=== PATIENT | female | born 1980 | race Caucasian/White ===

== ENCOUNTER 2016-12-18 15:49 | Inpatient (IN) | payer MEDICAID ==
[~2016-12-18] VITALS: Ht 157.5 cm; Wt 98.3 kg
[2016-12-18 16:39] VITALS: Ht 157.5 cm; Wt 98.3 kg
[2016-12-18] MEDS ORDERED: PRENAT PO (16:40)
[2016-12-18] MEDS ORDERED: LACTATED RINGER'S 1,000 ML IV SCH (17:00)
[2016-12-18] MEDS ORDERED: TERBUTALINE 1 MG/ML INJ SC ONE (17:00)
[2016-12-18 17:46] LABS: ADD UMIC NO; URINE BILIRUBIN (Dip) NEGATIVE (NEGATIVE); URINE BLOOD (Dip) NEGATIVE (NEGATIVE); URINE COLOR LT. YELLOW (YELLOW); URINE GLUCOSE (Dip) NEGATIVE (NEGATIVE); URINE KETONES (Dip) NEGATIVE (NEGATIVE); URINE LEUKOCYTE ESTERASE (Dip) NEGATIVE (NEGATIVE); URINE NITRITE (Dip) NEGATIVE (NEGATIVE); URINE TOTAL PROTEIN (Dip) NEGATIVE (NEGATIVE); URINE UROBILINOGEN (Dip) 0.2 E.U./dL (0.1-1.0)
[2016-12-18 17:48] LABS: BASOPHILS % 0.4 % (0.0-2.0); EOSINOPHILS # 0.2 10^3/ul (0.0-0.5); EOSINOPHILS % 2.1 % (0.0-7.0); HEMATOCRIT 38.7 % (37.0-47.0); LYMPHOCYTES # 2.4 10^3/ul (0.8-2.9); LYMPHOCYTES % 25.9 % (15.0-51.0); MEAN CORPUSCULAR HEMOGLOBIN 29.5 pg (29.0-33.0); MEAN CORPUSCULAR HGB CONC 33.6 g/dl (32.0-37.0); MEAN PLATELET VOLUME 8.4 fl (7.4-10.4); MONOCYTE # 0.5 10^3/ul (0.3-0.9); MONOCYTES % 5.3 % (0.0-11.0); NEUTROPHIL # 6.1 10^3/ul (1.6-7.5); NEUTROPHILS % 66.3 % (39.0-77.0); PLATELET COUNT 230 10^3/UL (140-440); RED CELL DISTRIBUTION WIDTH 14.8 % (11.5-14.5); UNCORRECTED WBC 9.3 10^3/ul (4.8-10.8); WHITE BLOOD COUNT 9.3 10^3/ul (4.8-10.8)
[2016-12-18 17:51] LABS: CONDITION 1; INR 0.95; LH ANALYZER COMMENTS 1; PROTIME 12.7 Sec (12.2-14.2)
[2016-12-18 17:52] LABS: PARTIAL THROMBOPLASTIN TIME 27.6 Sec (25.0-35.0)
[2016-12-18 17:53] LABS: ALBUMIN 3.6 g/dl (3.3-4.9)
[2016-12-18 17:54] LABS: POTASSIUM 4.7 mmol/L (3.5-5.1)
[2016-12-18 17:56] LABS: ALBUMIN/GLOBULIN RATIO 1.05; BILIRUBIN,INDIRECT 0.3 mg/dl (0-1.1); BILIRUBIN,TOTAL 0.3 mg/dl (0.2-1.3); CREATININE 0.4 mg/dl (0.44-1.00)
[2016-12-18 17:57] LABS: CALCIUM 10.1 mg/dl (8.4-10.2); URIC ACID 4.5 mg/dl (3.1-7.9)
--- NOTE | 2016-12-18 17:57 | RADRPT ---
PROCEDURE: OB ultrasound for biophysical profile CLINICAL INDICATION: labor. Biophysical profile. . TECHNIQUE: Multiple sonographic images of the pelvis were obtained. Transabdominal imaging was pe rformed. Transvaginal images were obtained to assess cervical length. The images were reviewed on a PACS workstation. COMPARISON: None FINDINGS: breathing movement = 2/2 tone = 2/2 motion = 2/2 MAKAYLA = 2/2 MAKAYLA = 19.7 cm Single intrauterine gestation is identified in breech position. Placenta is anterior without evidenc e for abruption or previa. heart rate is 141 bpm. The cervix is closed and measures 4.8 cm in length. IMPRESSION: 1. Single live intrauterine gestation. 2. Biophysical profile = 8/8. 3. MAKAYLA = 19.7 cm. 4. Breech presentation. RPTAT: PP .Lon Eddy MD, Date Time Electronically viewed and signed by .Lon Eddy MD, on 12/18/2016 17:57 .R/
[2016-12-18] MEDS ORDERED: MISOPROSTOL 200 MCG TAB PR PRN (18:00)
[2016-12-18] MEDS ORDERED: MAGNESIUM SULFATE 4 GM/100 ML 100 ML IV ONE (18:00)
[2016-12-18] MEDS ORDERED: CEFAZOLIN 2 GM/50 ML (PMX) 50 ML IV SCH (18:00)
[2016-12-18] MEDS ORDERED: METHYLERGONOVINE 0.2 MG INJ IM PRN (18:00)
[2016-12-18] MEDS ORDERED: OXYTOCIN 30 UNITS/LR 500 ML IV PRN (18:00)
[2016-12-18] MEDS ORDERED: CARBOPROST 250 MCG INJ IM PRN (18:00)
[2016-12-18] MEDS: MAGNESIUM SULFATE 20 GM/500 ML 500 ML IV SCH (19:00)
[2016-12-18] MEDS ORDERED: BETAMET NA PHOS/AC(6 MG/ML) 5ML INJ IM SCH ×2 (19:00→20:26)
[2016-12-18] MEDS: LACTATED RINGER'S 1,000 ML IV SCH (19:46)
[2016-12-18 20:39] LABS: BARBITURATES Negative (NEGATIVE); BENZODIAZEPINES Negative (NEGATIVE); CANNABINOIDS Negative (NEGATIVE); COCAINE Negative (NEGATIVE); OPIATES Negative (NEGATIVE)
[2016-12-19] MEDS: LACTATED RINGER'S 1,000 ML IV SCH ×2 (04:27→13:36)
[2016-12-19] MEDS: MAGNESIUM SULFATE 20 GM/500 ML 500 ML IV SCH ×2 (04:29→13:36)
[2016-12-19] MEDS ORDERED: LABETALOL HCL 20MG INJ IV PRN (06:00)
[2016-12-19] MEDS ORDERED: CITRIC ACID/NA CITRATE 30 ML CUP PO ONE (11:00)
[2016-12-19] MEDS ORDERED: KETOROLAC 30 MG INJ ONE (15:27)
[2016-12-19] MEDS ORDERED: morphine SULFATE/PF (10 MG/10 ML) INJ ONE (15:27)
[2016-12-19] MEDS ORDERED: ONDANSETRON 4 MG INJ ONE (15:27)
[2016-12-19] MEDS ORDERED: METOCLOPRAMIDE 10 MG INJ ONE (15:27)
[2016-12-19] MEDS ORDERED: ONDANSETRON 4 MG INJ IV PRN ×2 (16:00)
[2016-12-19] MEDS ORDERED: MEPERIDINE 25 MG INJ IV PRN (16:00)
[2016-12-19] MEDS ORDERED: NALOXONE (0.4 MG/ML) INJ IV PRN (16:00)
[2016-12-19] MEDS ORDERED: DIPHENHYDRAMINE 50 MG INJ IV PRN ×2 (16:00)
[2016-12-19] MEDS ORDERED: KETOROLAC 30 MG INJ IV PRN (16:00)
[2016-12-19] MEDS ORDERED: HYDROmorphONE (0.2 MG/ML) 10ML SYG IV PRN ×3 (16:00)
[2016-12-19] MEDS ORDERED: METOCLOPRAMIDE 10 MG INJ IV PRN (16:00)
[2016-12-19] MEDS ORDERED: HYDROmorphONE 1 MG/ML SYG IV PRN ×3 (16:00)
[2016-12-19] MEDS ORDERED: FENTAnyl 50 MCG/ML VIAL ONE (16:09)
[2016-12-19] MEDS ORDERED: OXYTOCIN 30 UNITS/LR 500 ML IV SCH (19:00)
--- NOTE | 2016-12-19 19:35 | DELSUM ---
Delivery Summary A-C Datetime Report Generated by CPN: 12/19/2016 19:34 DELIVERY PERSONNEL Senior Software Qa Analyst: Nicholas, [facility] MATERNAL INFORMATION Delivery Anesthesia: Epidural Medications in Delivery: SEE ANESTHESIA RECORDS Estimated Blood Loss (ml): 600 Placenta Cultured: No Maternal Complications: Other Other Maternal Complications: PIH ON MAGNESIUM SULFATE LABOR SUMMARY EDC: 01/28/2017 00:00 No. Babies in Womb: 1 Attempted: No Labor Anesthesia: Intrathecal LABOR INFORMATION Reason for Induction: Not Applicable Oxytocin: N/A Group B Beta Strep: Not Done Antibiotics # of Doses: ANCEF 2 GM Antibiotics Time of Last Dose: 1539 Steroids Given: Full Course Reason Steroids Not Administered: Not Applicable MEMBRANES Membranes Rupture Method: Artificial Rupture of Membranes: 12/19/2016 16:06 Length of Rupture (hr): 0.02 Amniotic Fluid Color: Clear Amniotic Fluid Amount: Large Amniotic Fluid Odor: Normal STAGES OF LABOR Stage 3 hr: 0 Stage 3 min: 1 CSECTION DELIVERY Primary Indication: Repeat Elective Other Primary Indication: PIH CSection Urgency: Non Elective CSection Incidence: Repeat Labor: No Labor Elective: Nonelective CSection Incision: Lower Uterine Transverse BABY A INFORMATION Delivery Date/Time: 12/19/2016 16:07 Method of Delivery: Born in Route : No : N/A Forceps: N/A Vacuum Extraction: N/A Shoulder Dystocia : N/A SHOULDER DYSTOCIA BABY A Delivery Date/Time: 12/19/2016 16:07 PRESENTATION/POSITION BABY A Presentation: Cephalic Cephalic Presentation: Vertex Breech Presentation: N/A PLACENTA INFORMATION BABY A Placenta Delivery Time : 12/19/2016 16:08 Placenta Method of Delivery: Manual Removal Placenta Status: Delivered SCORES BABY A Heart Rate 1 min: >100 bpm Resp Effort 1 min: Good Cry Reflex Irritability 1 min: Cough/Sneeze/Pulls Away Muscle Tone 1 min: Active Motion Color 1 min: Body [place], Extremit Blue SCORE 1 MIN: 9 Heart Rate 5 min: >100 bpm Resp Effort 5 min: Good Cry Reflex Irritability 5 min: Cough/Sneeze/Pulls Away Muscle Tone 5 min: Active Motion Color 5 min: Body [place], Extremit Blue SCORE 5 MIN: 9 INFORMATION BABY A Gestational Age at Delivery: 34.2 Gestational Status: Late - 34- 36.6 Weeks Infant Outcome : Liveborn Condition : Stable Sex: Male IDENTIFICATION/MEDS BABY A ID Band Number: [id number] ID Band Location: Right Leg; Left Arm Sensor Applied: No Vitamin K Given : Not Given Erythromycin Given: Not Given WEIGHT/LENGTH BABY A Infant Birthweight (gm): 2760 Infant Weight (lb): 6 Infant Weight (oz): 1 Length (in): 19.50 Infant Length (cm): 49.53 CORD INFORMATION BABY A No. Cord Vessels: 3 Nuchal Cord : N/A Cord Blood Taken: Yes Infant Suction: Mouth; Nose ASSESSMENT BABY A Infant Complications: None Infant Complications- Other: BABY ADMITTED IN NICU FOR PREMATURITY Physical Findings at Delivery: Within Normal Limits Infant Respirations: Appears Normal Performance Test Consultant/ALS Called : Yes Infant Care By: NICU TEAM Transferred To: NICU
--- NOTE | 2016-12-19 19:59 | HP ---
DATE OF ADMISSION: 12/18/2016 HISTORY OF PRESENT ILLNESS: This is a 36-year-old female, 2, para 1, with an EDC of 01/28/2017, admitted at 34 to 35 weeks' gestation to [facility] due to the elevated blood pressure which were running at on admission 143/97, the highest 162/94. The patient was kept under close observation and perinatology consult requested and also she was placed on magnesium sulfate. The recommendation of perinatologist was delivery of the baby and since she has had a previous section, she is being prepared to undergo a repeat section by diagnosis of PIH superimposed on essential hypertension. She has been under the care of the [facility] and during the course of the , her blood pressure was elevated as of the first visit to the office at 9 weeks' gestation which was 132/101 and the rest of her blood pressure during the course of the , they were in the 140s/80s and mostly the diastolic was higher and her final blood pressure that was done on in the office was 130/94. GYNECOLOGIC HISTORY: Menarche at age 13. Regular periods. History of 1 previous with section. PAST MEDICAL HISTORY: No other hospitalization for any other surgical or medical condition has been recorded in her record. ALLERGIES: SHE IS NOT ALLERGIC TO ANY KNOWN MEDICATION. SOCIAL HISTORY: Denies smoking and drinking. PHYSICAL EXAMINATION: VITAL SIGNS: 5 feet, 2 inches, 216 pounds. Temperature 98.3, pulse of 63, respiration 18, and blood pressure 162/94. HEAD, EARS, NOSE AND THROAT: Negative. NECK: Supple. No thyromegaly. LUNGS: Clear to P and A. HEART: Normal sinus rhythm, no murmur. BREASTS: Status compatible with state of the . No abnormal palpable mass. No nipple retraction or discharge. No axillary adenopathy, no supraclavicular adenopathy. ABDOMEN: Measures approximately 37 to 38 cm from the upper border of the pubic arch to the highest level of the uterine fundus with the heart category 1 and mild contractions less than 3 or 4 in 10 minutes. EXTREMITIES: 2+ ankle edema. Reflexes were within normal. IMPRESSION: Intrauterine at 34 to 35 weeks' gestation. complicated with essential hypertension with possible superimposed - induced hypertension. Perinatology consultation recommended delivery. The patient is aware of the complication of the surgery, including being at 34 to 35 weeks' gestation, due to prematurity there is possibility of baby may need to be transferred to NICU ,also the complication of the surgery, including but not limited to bowel or bladder injury, infection, hemorrhage, and hematoma, and she agrees to go ahead with this procedure. Dictated By: ABIODUN CAR/LATRELL Conf#: [id number] DID#: [id number]
--- NOTE | 2016-12-19 20:23 | OPR ---
DATE OF OPERATION: 12/19/2016 PREOPERATIVE DIAGNOSES: 1. Intrauterine at 35 weeks' gestation. 2. History of previous section. 3. Severe -induced hypertension, recommended by perinatologist delivery. POSTOPERATIVE DIAGNOSES: 1. Intrauterine at 35 weeks' gestation. 2. History of previous section. 3. Severe -induced hypertension, recommended by perinatologist delivery. OPERATION PERFORMED: Repeat transverse low cervical section. SURGEON: Abiodun Mace MD WET MILLING WHEEL OPERATOR: Cady Paniagua MD ANESTHESIA: Spinal. ANESTHESIOLOGIST: Jena Wilks MD FINDINGS: Live baby boy, Apgars 9 and 9. Baby weighed 2760 grams, 6 pounds 1 ounce. DETAILS OF THE PROCEDURE: Under satisfactory spinal anesthesia, the patient prepped and draped and placed in supine position tilted to the left. Pfannenstiel incision was made. Old scar was removed . Incision carried through the subcutaneous tissue. Bleeders brought under control with electrocau rhonda. Fascia incised to the length of incision. Rectus muscle divided in midline. Peritoneum expo sed, entered through transverse incision. Exploration of abdomen, gravid uterus, normal-appearing t ubes and ovaries. Bladder flap was developed. Transverse incision was made in the lower segment of the uterus. Amniotic sac ruptured. Clear amniotic fluid noted. Live baby boy was delivered from [facility]. Nasal, oropharyngeal suction was performed and baby handed to the team for immediate attention. The patient received 20 units of Pitocin. Placenta delivered manually intact. Uterine cavity cleaned with wet sponge and drainage established. Uterus closed in 2 layers using Monocryl # 1 in continuous fashion. Peritoneal cavity irrigated with warm saline. Sponge, needle, instrument reported to be correct. Abdominal peritoneum closed with 2-0 chromic catgut continuously. Rectus m uscle approximated with 2 interrupted 2-0 chromic catgut. Fascia closed with #1 PDS in a continuous fashion. Subcutaneous tissue irrigated with warm saline and approximated with 2-0 chromic catgut. Skin closed with prisca. Estimated blood loss 600 to 700 mL. Urine bag contained 200 mL of clear urine. The patient tolerated procedure well and transferred to recovery room in good condition. Dictated By: ABIODUN MACE MD HF/NTS Conf#: [id number] DID#: [id number]
[2016-12-19] MEDS ORDERED: BETAMET NA PHOS/AC(6 MG/ML) 5ML INJ IM SCH ×3 (20:30)
[2016-12-19 20:50] VITALS: BP 144/75; PULSE 73; RESP 18
[2016-12-19] MEDS ORDERED: LANOLIN 7 GM TUBE TOP PRN (21:00)
[2016-12-19] MEDS ORDERED: ACETAMINOPHEN/CODEINE #3 TAB PO PRN ×2 (21:00)
[2016-12-19] MEDS ORDERED: OXYTOCIN 30 UNITS/LR 500 ML IV PRN (21:00)
[2016-12-19] MEDS ORDERED: CARBOPROST 250 MCG INJ IM PRN (21:00)
[2016-12-19] MEDS ORDERED: CEFAZOLIN 1 GM/50 ML (PMX) 50 ML IVPB SCH (21:00)
[2016-12-19] MEDS ORDERED: MISOPROSTOL 200 MCG TAB PR PRN (21:00)
[2016-12-19] MEDS ORDERED: METHYLERGONOVINE 0.2 MG INJ IM PRN (21:00)
[2016-12-19] MEDS ORDERED: OXYCODONE/ACETAMINOPHEN (5/325) TAB PO PRN ×2 (21:00)
[2016-12-19] MEDS: SENNA/DOCUSATE NA (8.6MG/50MG) TAB PO SCH (21:00)
[2016-12-19] MEDS: OXYTOCIN 30 UNITS/LR 500 ML IV SCH (21:28)
[2016-12-19 22:00] VITALS: BP 129/73; PULSE 64; RESP 18
[2016-12-19 23:00] VITALS: BP 130/69; PULSE 62; RESP 18
[2016-12-20] VITALS (15 sets, daily range): BP systolic 107–141; BP diastolic 60–76; PULSE 57–78; RESP 16–19
[2016-12-20 00:05] LABS: SCRET 0.4 mg/dl (0.44-1.00)
[2016-12-20] MEDS: MAGNESIUM SULFATE 20 GM/500 ML 500 ML IV SCH (03:05)
[2016-12-20] MEDS: OXYTOCIN 30 UNITS/LR 500 ML IV SCH ×2 (03:06→05:00)
[2016-12-20] MEDS ORDERED: CARBOPROST 250 MCG INJ ONE (07:00)
[2016-12-20 08:14] LABS: BASOPHILS % 0.1 % (0.0-2.0); HEMATOCRIT 33.1 % (37.0-47.0); HEMOGLOBIN 11.1 g/dl (12.0-16.0); LYMPHOCYTES % 8.3 % (15.0-51.0); MEAN CORPUSCULAR HGB CONC 33.7 g/dl (32.0-37.0); MEAN CORPUSCULAR VOLUME 89.1 fl (82.0-101.0); MEAN PLATELET VOLUME 8.6 fl (7.4-10.4); MONOCYTE # 0.6 10^3/ul (0.3-0.9); MONOCYTES % 4.6 % (0.0-11.0); NEUTROPHIL # 10.7 10^3/ul (1.6-7.5); PLATELET COUNT 225 10^3/UL (140-440); RED BLOOD COUNT 3.71 10^6/ul (4.20-5.40); RED CELL DISTRIBUTION WIDTH 14.9 % (11.5-14.5); UNCORRECTED WBC 12.3 10^3/ul (4.8-10.8); WHITE BLOOD COUNT 12.3 10^3/ul (4.8-10.8)
[2016-12-20 08:38] LABS: CONDITION 1; LH ANALYZER COMMENTS 1
[2016-12-20] MEDS: SENNA/DOCUSATE NA (8.6MG/50MG) TAB PO SCH ×2 (09:44→22:49)
[2016-12-20] MEDS: LACTATED RINGER'S 1,000 ML IV SCH ×2 (09:44→21:26)
[2016-12-20] MEDS: IBUPROFEN 600 MG TAB PO SCH (18:00)
--- NOTE | 2016-12-20 18:12 | PN ---
Date/Time of Note Date/Time of Note DATE: 12/20/16 TIME: 18:10 OB Subjective Subjective Subjective Postop day 1 Afebrile blood pressure running within normal no headache no epigastric or blurry vision abdomen soft incision dry bowel sounds present ambulation recommended ABIODUN MACE MD Dec 20, 2016 18:12
[2016-12-21] MEDS: IBUPROFEN 600 MG TAB PO SCH ×4 (00:17→18:07)
[2016-12-21 04:00] VITALS: BP 137/75; PULSE 75; RESP 17
[2016-12-21 08:30] VITALS: BP 138/83; RESP 17
[2016-12-21] MEDS: SENNA/DOCUSATE NA (8.6MG/50MG) TAB PO SCH ×2 (08:55→21:00)
[2016-12-21] MEDS ORDERED: INFLUENZA VIRUS VACCINE 0.5 ML (DISPENSING) IM* ONE (09:00)
[2016-12-21] MEDS: LACTATED RINGER'S 1,000 ML IV SCH (10:46)
--- NOTE | 2016-12-21 14:06 | PN ---
Date/Time of Note Date/Time of Note DATE: 12/21/16 TIME: 14:04 OB Subjective Subjective Subjective Postop day 2 Abdomen soft uterus firm incision dry bowel sounds present had normal BM extremity normal ABIODUN MACE MD Dec 21, 2016 14:06
[2016-12-21 16:30] VITALS: BP 140/81; PULSE 76; RESP 17
[2016-12-21 19:30] VITALS: BP 139/76; PULSE 84; RESP 18
[2016-12-22] MEDS: IBUPROFEN 600 MG TAB PO SCH ×3 (01:11→12:43)
[2016-12-22 04:30] VITALS: BP 156/84; PULSE 86; RESP 18
[2016-12-22 08:15] VITALS: BP 157/86; PULSE 80; RESP 17
[2016-12-22] MEDS: SENNA/DOCUSATE NA (8.6MG/50MG) TAB PO SCH (08:43)
[2016-12-22] MEDS ORDERED: DIPHTH/TET/ACEL PERTUSS (ADULT) 0.5 ML VIAL IM* ONE (09:00)
[2016-12-22 10:00] VITALS: BP 146/83; PULSE 83; RESP 16
[2016-12-22 12:00] VITALS: BP 138/85; PULSE 89; RESP 18
--- NOTE | 2016-12-22 13:42 | PD.PPDC ---
AUTO [employer]S PROFESSIONAL Discharge Instruction Condition Patient Condition: Good Diet Diet: Resume Regular Diet Activity/Restrictions Activity: Normal Activity May Shower Restrictions: No Exercising No Lifting No Driving No Sexual Activity Nothing in the Vagina No [place] No Tampons, douche Wound/Drain Care Instructions Wound/Drain Care Instructions: Remove Steri Strips in 1 week Follow-up Follow-up with Physician: 4 Return to clinic for WELL LOGGER Instructions: Fever greater than 101 Worsening abdominal pain Excessive Vaginal Bleeding More than 2 pads per hour Unable to tolerate diet OB Instructions: Breast Tenderness Blurried Vision Headache Surgical Instructions: Incisional Drainage Incisional Redness ABIODUN MACE MD Dec 22, 2016 13:42
--- NOTE | 2016-12-22 13:57 | DS ---
Date/Time of Note Date/Time of Note DATE: 12/22/16 TIME: 13:52 Obstetrical Discharge Record Final Diagnosis Final Diagnosis: Term delivered Section Section: Repeat Complications Preg induced Hypertension Augmentation: No Induction: No Tocolytics: Magnesium Sulfate Condition on Discharge Physical Assessment Last Vitals: Third post day Vital sign is stable blood pressure in the last 24 hours mostly running in low 140s over 80s she has no complain of headache or gastric pain blurry vision, her abdomen is soft, incision dry good bowel sounds had normal bowel movement is being discharged home with a prescription of labetalol 100 mg every 12 hours with the parameter to hold the doses if her blood pressure is less than 140/80, also recommended to make an appointment in 4 days to the office for postoperative check and removal of her prisca Current Medications Medications (Trade) Dose Ordered Sig/Nader Route PRN Reason Start Time Stop Time Status Last Admin Dose Admin Terbutaline Sulfate 0.25 mg 0.25 mg ONCE ONCE SC 12/18/16 17:00 12/18/16 17:01 DC 12/18/16 17:18 Lactated Ringer's 1,000 ml @ 125 mls/hr Q8H IV 12/18/16 17:00 12/18/16 17:41 DC 12/18/16 17:18 Lactated Ringer's 1,000 ml @ 75 mls/hr [id number] IV 12/18/16 17:34 12/21/16 12:28 DC 12/20/16 09:44 Cefazolin Sodium/ Dextrose 50 ml @ 100 mls/hr ONCE IV 12/18/16 18:00 12/19/16 21:07 DC Oxytocin/Lactated Ringer's 500 ml @ 0 mls/hr ONCE PRN IV For Hemorrhage Management 12/18/16 18:00 12/19/16 21:07 DC Methylergonovine Maleate (Methergine) 0.2 mg ONCE PRN IM VAGINAL BLEEDING 12/18/16 18:00 12/19/16 21:07 DC Carboprost Tromethamine (Hemabate) 250 mcg ONCE PRN IM VAGINAL BLEEDING 12/18/16 18:00 12/19/16 21:07 DC Misoprostol 1000 mcg 1,000 mcg ONCE PRN CA VAGINAL BLEEDING 12/18/16 18:00 12/19/16 21:07 DC Magnesium Sulfate 100 ml @ 200 mls/hr ONCE ONCE IV 12/18/16 18:00 12/18/16 18:29 DC 12/18/16 18:37 Magnesium Sulfate (Magnesium Sulfate 20 Gm/500 ml) 500 ml @ 50 mls/hr Q10H IV 12/18/16 17:37 12/20/16 13:39 DC 12/20/16 03:05 Betamethasone Acet/Betameth SodPhos (Celestone Soluspan) 12 mg Q24H IM 12/18/16 19:00 12/18/16 20:18 DC Betamethasone Acet/Betameth SodPhos (Celestone Soluspan) 12 mg Q12 IM 12/19/16 20:30 12/19/16 20:30 DC Betamethasone Acet/Betameth SodPhos (Celestone Soluspan) 12 mg Q12 IM 12/19/16 20:30 12/19/16 20:30 DC Betamethasone Acet/Betameth SodPhos (Celestone Soluspan) 12 mg Q12 IM 12/18/16 20:26 12/19/16 09:01 DC 12/18/16 20:35 Labetalol HCl (Labetalol) 20 mg PRN PRN IV ELEVATED BLOOD PRESSURE 12/19/16 06:00 12/19/16 17:34 DC Betamethasone Acet/Betameth SodPhos (Celestone Soluspan) 12 mg Q12 IM 12/19/16 20:30 12/19/16 20:30 DC 12/19/16 10:35 Citric Acid/ Sodium Citrate (Bicitra) 30 ml ONCE ONCE PO 12/19/16 11:00 12/19/16 11:06 DC 12/19/16 11:41 Morphine Sulfate (Duramorph) 10 mg STK-MED ONCE .ROUTE 12/19/16 15:27 12/19/16 15:28 DC Ondansetron HCl (Zofran Inj) 4 mg STK-MED ONCE .ROUTE 12/19/16 15:27 12/19/16 15:28 DC Metoclopramide HCl (Reglan) 10 mg STK-MED ONCE .ROUTE 12/19/16 15:27 12/19/16 15:28 DC Ketorolac Tromethamine (Toradol) 30 mg STK-MED ONCE .ROUTE 12/19/16 15:27 12/19/16 15:28 DC Hydromorphone HCl (Dilaudid (Rec)) 0.2 mg PACU ORDER PRN IV MILD PAIN LEVEL 1-3 12/19/16 16:00 12/19/16 21:07 DC Hydromorphone HCl (Dilaudid (Rec)) 0.4 mg PACU ORDER PRN IV MODERATE PAIN LEVEL 4-6 12/19/16 16:00 12/19/16 21:07 DC Hydromorphone HCl (Dilaudid (Rec)) 0.6 mg PACU ORDER PRN IV SEVERE PAIN LEVEL 7-10 12/19/16 16:00 12/19/16 21:07 DC Ondansetron HCl (Zofran Inj) 4 mg PACU ORDER PRN IV NAUSEA AND/OR VOMITING 12/19/16 16:00 12/19/16 21:07 DC Metoclopramide HCl (Reglan) 10 mg PACU ORDER PRN IV NAUSEA AND/OR VOMITING 12/19/16 16:00 12/19/16 21:07 DC Meperidine HCl (Demerol) 25 mg PACU ORDER PRN IV POST-OP RIGORS 12/19/16 16:00 12/19/16 21:07 DC Diphenhydramine HCl (Benadryl) 25 mg PACU ORDER PRN IV PRURITUS 12/19/16 16:00 12/19/16 21:07 DC Fentanyl (Sublimaze) 100 mcg STK-MED ONCE .ROUTE 12/19/16 16:09 12/19/16 16:10 DC Naloxone HCl (Narcan) 0.1 mg Q2M PRN IV FOR RESP RATE 8 OR LESS 12/19/16 16:00 12/19/16 21:07 DC Ketorolac Tromethamine (Toradol) 30 mg Q6H PRN IV PAIN 12/19/16 16:00 12/20/16 15:59 DC 12/19/16 21:30 Hydromorphone HCl (Dilaudid) 1 mg Q3H PRN IV BREAKTHROUGH PAIN 12/19/16 16:00 12/20/16 15:59 DC Hydromorphone HCl (Dilaudid) 0.2 mg Q3H PRN IV PAIN LEVEL 1-5 12/19/16 16:00 12/20/16 15:59 DC Hydromorphone HCl (Dilaudid) 0.4 mg Q3H PRN IV PAIN LEVEL 6-10 12/19/16 16:00 12/20/16 15:59 DC Diphenhydramine HCl (Benadryl) 25 mg Q6H PRN IV ITCHING 12/19/16 16:00 12/20/16 15:59 DC Ondansetron HCl 4 mg 4 mg Q6H PRN IV NAUSEA AND/OR VOMITING 12/19/16 16:00 12/20/16 15:59 DC Oxytocin/Lactated Ringer's 500 ml @ 125 mls/hr ONCE -MAY REPEAT X1 IV 12/19/16 19:00 12/19/16 21:07 DC Acetaminophen/ Codeine Phosphate (Tylenol No.3) 1 tab Q4H PRN PO PAIN LEVEL 4-6 12/19/16 21:00 Acetaminophen/ Codeine Phosphate (Tylenol No.3) 2 tab Q4H PRN PO PAIN LEVEL 7-10 12/19/16 21:00 Oxycodone/ Acetaminophen (Percocet (5/ 325)) 1 tab Q4H PRN PO PAIN LEVEL 4-6 12/19/16 21:00 Oxycodone/ Acetaminophen (Percocet (5/ 325)) 2 tab Q4H PRN PO PAIN LEVEL 7-10 12/19/16 21:00 Ibuprofen (Motrin) 600 mg Q6 PO 12/20/16 18:00 12/22/16 12:43 Simethicone (Mylicon) 160 mg Q8H PRN PO DISTENSION/GAS/BLOATING 12/19/16 21:00 Senna/Docusate Sodium (Senokot-S) 1 tab BID PO 12/19/16 21:00 12/22/16 08:43 Lanolin (Axy-W-Cgldlu) 1 applic BEDSIDE MEDICATION PRN TOP BEDSIDE FOR MILO TO NIPPLES 12/19/16 21:00 Diphtheria/ Tetanus/Acell Pertussis 0.5 ml 0.5 ml ONCE ONCE IM* 12/22/16 09:00 12/22/16 09:01 DC 12/22/16 12:43 Oxytocin/Lactated Ringer's 500 ml @ 0 mls/hr ONCE PRN IV For Hemorrhage Management 12/19/16 21:00 Methylergonovine Maleate (Methergine) 0.2 mg ONCE PRN IM VAGINAL BLEEDING 12/19/16 21:00 Carboprost Tromethamine (Hemabate) 250 mcg ONCE PRN IM VAGINAL BLEEDING 12/19/16 21:00 Misoprostol 1000 mcg 1,000 mcg ONCE PRN CA VAGINAL BLEEDING 12/19/16 21:00 Cefazolin Sodium 50 ml @ 100 mls/hr ONCE IVPB 12/19/16 21:00 12/19/16 21:29 DC 12/19/16 21:28 Oxytocin/Lactated Ringer's 500 ml @ 125 mls/hr Q4H IV 12/19/16 21:00 12/20/16 09:46 DC 12/20/16 03:06 Influenza Virus Vaccine (Fluzone) 0.5 ml ONCE ONCE IM* 12/21/16 09:00 12/21/16 09:01 DC 12/21/16 16:17 Carboprost Tromethamine (Hemabate) 250 mcg STK-MED ONCE .ROUTE 12/20/16 07:00 12/20/16 20:29 DC Voiding: Yes Bowel Movement: Yes Breast: Soft, non-tender, Filling Fundus: Firm Calf Tenderness: No Patient Condition: Good ABIODUN MACE MD Dec 22, 2016 13:57
== END 2016-12-22 17:45 | disposition home or self-care (01) | DRG 766 ==
LOC: OBT 15:49 → L-D 15:51 → OBT 17:30 → L-D 17:30 → PP1 12-19 20:51
PROVIDERS: ADMIT Obstetrics & Gynecology; ATTEND Obstetrics & Gynecology
PROC: 10D00Z1 Extraction of Products of Conception, Low, Open Approach (ICD-10-PCS; principal; 2016-12-19 16:00)
PROC: 3E00X4Z Introduction of Serum, Toxoid and Vaccine into Skin and Mucous Membranes, External Approach (ICD-10-PCS; 2016-12-22)
DX: O60.14X0 Preterm labor third trimester with preterm delivery third trimester, not applicable or unspecified (principal); O13.4 Gestational [pregnancy-induced] hypertension without significant proteinuria, complicating childbirth; O34.211 Maternal care for low transverse scar from previous cesarean delivery; O99.214 Obesity complicating childbirth; Z23 Encounter for immunization; E66.01 Morbid (severe) obesity due to excess calories; Z68.39 Body mass index [BMI] 39.0-39.9, adult; Z3A.35 35 weeks gestation of pregnancy; Z37.0 Single live birth
CPT/HCPCS: 36415; 76817; 76818; 80053; 80307; 81003; 82575; 83735; 84560; 85025; 85384; 85610; 85730; 86592; 86703; 86850; 86900; 86901; 87340; 90686; 90715; 94760; 96372; 99464; G0463; J0690; J0702; J1885; J2210; J2274; J2405; J2590; J2765; J3010; J3105; J3475; J7120